=== PATIENT | female | born 1995 | race African-American/Black ===

== ENCOUNTER 2023-12-23 11:00 | Emergency (ER) | payer OTHER ==
[~2023-12-23] VITALS: Ht 162.6 cm; Wt 86.4 kg
[2023-12-23 11:02] VITALS: TEMP 97.8
[2023-12-23] MEDS ORDERED: Morphine 4 MG/ML VIAL IV PRN (12:00)
[2023-12-23] MEDS ORDERED: Morphine 4 MG/ML VIAL IV ONE (12:00)
[2023-12-23] MEDS ORDERED: Ondansetron 4 MG/2 ML VIAL IV ONE (12:00)
[2023-12-23] MEDS ORDERED: NS 1,000 ML IV ONE (12:00)
[2023-12-23 12:41] LABS: BASO # 0.1 K/mm3 (0.0-0.2); BASO % 0.4 % (0.0-2.0); EOS # 0.1 K/mm3 (0.0-0.7); EOS % 0.6 % (0.0-4.0); GRAN # 8.8 K/mm3 (1.4-6.5); GRAN % 75.1 % (42.2-75.2); HEMATOCRIT 40.2 % (37.0-47.0); HEMOGLOBIN 13.5 g/dl (12.5-16.0); LYMPH # 2.3 K/mm3 (1.2-3.4); LYMPH % 19.3 % (20.0-51.0); MEAN CELL VOLUME 86 fl (80.0-100.0); MEAN CORPUSCULAR HEMOGLOBIN 29 pg (27-31); MEAN CORPUSCULAR HGB CONC 34 g/dl (33.0-37.0); MEAN PLATELET VOLUME 10.9 fl (7.4-10.4); MONO # 0.5 K/mm3 (0.1-0.6); MONO % 4.3 % (1.7-9.3); PLATELET COUNT 409 K/mm3 (130-400); RED BLOOD COUNT 4.66 M/mm3 (4.10-5.30); REDCELL DISTRIBUTION WIDTH-CV 13.6 % (11.5-14.5)
[2023-12-23 12:50] LABS: PH 5.5 (5.0-8.5); URINE APPEARANCE CLEAR (CLEAR/HAZY); URINE BLOOD 2+ (NEGATIVE); URINE COLOR YELLOW (YELLOW); URINE GLUCOSE NEGATIVE (NEGATIVE); URINE KETONE 2+ (NEGATIVE); URINE NITRATE NEGATIVE (NEGATIVE); URINE PROTEIN(semi-quant) NEGATIVE (NEGATIVE); URINE UROBILINOGEN 0.2 E.U/dL (0.2-1.0)
[2023-12-23 12:55] LABS: COLLECTION METHOD CLEAN CATCH
[2023-12-23 13:09] LABS: ALBUMIN 3.4 g/dL (3.5-5.0); BILIRUBIN,TOTAL 0.3 mg/dL (0.2-1.2); CALCIUM 8.9 mg/dL (8.4-10.2); CREATININE, serum 0.72 mg/dL (0.57-1.11); POTASSIUM 3.2 mEq/L (3.5-4.5); TOTAL PROTEIN 7.6 g/dl (6.2-8.1)
[2023-12-23] MEDS ORDERED: Iohexol 300 - 100 ML VIAL IV ONE (13:28)
[2023-12-23] MEDS ORDERED: NS 100 ML IV SCH (13:30)
[2023-12-23] MEDS ORDERED: ZOFRAN ODT4 MG PO (14:45)
[2023-12-23 14:52] VITALS: BP 149/93; PULSE 101
== END 2023-12-23 15:00 | disposition home or self-care (01) ==
LOC: COL.ER 11:00
PROVIDERS: Personal Emergency Response Attendant
DX: R10.11 Right upper quadrant pain (principal)
CPT/HCPCS: J2270; J2405; J7030; Q9967